=== PATIENT | male | born 1970 | race Two or more races ===

== ENCOUNTER 2021-02-03 10:43 | Emergency (ER) | payer MEDICAID, OTHER ==
[~2021-02-03] VITALS: Ht 172.7 cm; Wt 59.0 kg
[2021-02-03 10:50] VITALS: BP 126/81
== END 2021-02-03 11:16 | disposition home or self-care (01) ==
LOC: ER 10:43
DX: S61.219D Laceration without foreign body of unspecified finger without damage to nail, subsequent encounter (principal); X58.XXXD Exposure to other specified factors, subsequent encounter